=== PATIENT | female | born 1940 | race Caucasian/White ===

== ENCOUNTER 2019-07-07 20:08 | Inpatient (IN) | payer MEDICARE, MEDICAID ==
[2019-07-07] MEDS ORDERED: Maalox 30 mL Cup PO PRN (21:19)
[2019-07-07] MEDS ORDERED: Magnesium Hydroxide (MOM) 30 mL UDC PO PRN (21:19)
[2019-07-07 21:43] VITALS: BP 189/85
--- NOTE | 2019-07-08 08:17 | History and Physical ---
History of Present Illness - HPI Chief Complaint: Psychosis HPI: 78 y/o female who presents to [facility] for psychsois. Patient was evaluated by a PET team and was placed on a 5150. Patient has no past medical history. While in the ER patient had initial labwork done WBC 8.3 H/H 13/39.6 plat 217 Na 139 K 3.8 Bun/Cr 13/0.53 glu 93 cholesterol 218 LDL 119 HDL 67 Patient was subsequently admitted for further evaluation and treatment. Vital Signs: Last Vital Signs Temp 97.5 F 07/08/19 06:06 Pulse 85 07/08/19 06:06 Resp 18 07/08/19 06:06 BP 124/66 07/08/19 06:06 Pulse Ox 98 07/08/19 06:06 Past Medical History Cardiovascular: Report: No Pertinent Hx Pulmonary: Report: No Pertinent Hx [employer]: Report: No Pertinent Hx GI: Report: No Pertinent Hx Psych: Report: Psychosis Musculoskeletal: Report: No Pertinent Hx Rheumatologic: Report: No pertinent Hx Infectious Disease: Report: No Pertinent Hx Renal/: Report: No Pertinent Hx Endocrine: Report: No Pertinent Hx Dermatology: Report: No Pertinent Hx - Past Surgical History Past Surgical History: No pertinent Hx Family Medical History - Family Member Daughter History Unknown: Yes Ethnicity: Unknown Living Status: Unknown Social History Smoke: No Alcohol: None Drugs: None Lives: Other ([facility]) - Allergies Allergies/Adverse Reactions: Allergies Allergy/AdvReac Type Severity Reaction Status Date / Time No Known Allergies Allergy Verified 07/07/19 21:15 Review of Systems - Review of Systems Constitutional: Report: No Significant Eyes: Report: No Significant ENT: Report: No Significant Respiratory: Report: No Significant Cardiovascular: Report: No Significant Gastrointestinal: Report: No Significant Genitourinary: Report: No Significant Musculoskeletal: Report: No Significant Skin: Report: No Significant Neurological: Report: No Significant Physical Exam - Physical Exam HEENT: Report: Ears Nose Throat within normal limits, Pharnyx within normal limits Neck: Report: Within normal limits Cardiovascular Systems: Report: +s1/s2 noted, Regular, Rate and Rhythm Respiratory: Report: Breath Sounds are within normal limits Abdomen: Report: Non-tender to palpation Back: Report: Inspection of back is within normal limits. Extremities: Report: Non-tender to palpation. Skin: Report: Color of skin is within normal limits Neuro/Psych: Report: Mood affect is within normal limits, A+Ox3 - Assessment Assessment: Psychosis - Plan Plan: admit to geropsyche continue current orders
--- NOTE | 2019-07-08 13:03 | Psychiatric Evaluation ---
DATE OF SERVICE: 07/07/2019 IDENTIFYING DATA: The patient is a 78-year-old woman, currently homeless. Information obtained by directly interviewing the patient as well as reviewing the admission papers. JUSTIFICATION FOR HOSPITALIZATION: The patient is admitted on a 5150 as a danger to self and being gravely disabled. CHIEF COMPLAINT: "You do not know what is going on. I am scared." HISTORY OF PRESENT ILLNESS: This is the first psychiatric hospitalization to [facility] for this patient who is reported to have a longstanding history of psychiatric problems as per the [facility] workers and the patient is reported to have been refusing to have even the physical as well as psychiatric care for a long time. The patient used to be homeless with great difficulty, they were able to secure a place for her to stay, but the patient is reported to have been very anxious and irritable and has been stating that her ex- is trying to kill her and the patient is trying to run out of the apartment and the patient could not be contained and hence the patient has been brought over here. As per the information obtained, the patient is reported to have been deteriorating at least for the past 2-1/2 years. The patient during the interview is stating there is nothing wrong with her and her ex- is still bothering her. PAST PSYCHIATRIC HISTORY: Please refer to the above. MEDICAL HISTORY: Physical examination is requested by Dr. Wood. SUBSTANCE ABUSE HISTORY: None. PHYSICAL OR SEXUAL ABUSE HISTORY: None. LEGAL PROBLEMS: None at this time. SOCIAL HISTORY: The patient is currently homeless. MENTAL STATUS EXAMINATION: The patient is a 78-year-old woman looking her stated age, superficially cooperative. Eye contact is fair. Mood is noted to be irritable. Affect is constricted. The patient is getting easily anxious and irritable. The patient has paranoid delusions and is fearful that her ex- is trying to kill her. The patient is stating that she needs to be in a safe and secured place. The patient is alert and aware that she is in the hospital. Short term memory is noted to be poor. Long-term memory seems to be fair at this time. Attention span and concentration are noted to be fair. The patient is not presenting with any threats to harm self or others, but the patient is extremely anxious and is worrying about her personal safety. The patient is not able to recall the three objects that are told to her after 5 minutes and the patient has been getting easily upset when I am asking the questions and then stating that she said enough and wants to walk away. DIAGNOSES: AXIS I: Dementia and behavioral changes, secondary trait. 1B: Psychotic disorder, not otherwise specified. AXIS II: None. AXIS III: As per Dr. Wood. IMMEDIATE TREATMENT PLAN: The patient is going to be observed on inpatient unit, provided with supportive psychotherapy. The patient is going to be closely monitored. Encouraged to verbalize the concerns rather than to act out. Once stabilized, the patient is going [facility] up on an outpatient basis. In view of the psychosis, the patient is going to be started with 12.5 mg of the Seroquel at bedtime and is going to be gradually increased. ESTIMATED LENGTH OF STAY: 5-7 days. DISCHARGE CRITERIA: When the patient no longer is threat to self or others and be able to cope up with the stress. [facility]# [id number]
--- NOTE | 2019-07-09 08:10 | General Progress Note ---
Subjective - Review of Systems Service Date: 07/09/19 Subjective: Awake, Alert, no acute distress VS T 96.9 P 80 EDILIA 158/83 R 20 Objective - Physical Exam Vitals and I&O: Vital Signs Temp 96.9 F 07/09/19 06:34 Pulse 80 07/09/19 06:34 Resp 20 07/09/19 06:34 BP 158/83 07/09/19 06:34 Pulse Ox 95 07/09/19 06:34 Intake & Output 07/08/19 07/09/19 07/09/19 18:59 06:59 18:59 Intake Total 360 Balance 360 Intake: Oral 360 Other: # Voids 1 # Bowel Movements 0 Active Medications: Current Medications Acetaminophen (Tylenol) 650 mg PO Q6H PRN PRN Reason: Mild Pain/Headache/T above 101 Stop: 09/05/19 21:18 Al Hydrox/Mg Hydrox/Simethicone (Maalox) 30 ml PO Q6H PRN PRN Reason: Dyspepsia Stop: 09/05/19 21:18 Lorazepam (Ativan) 0.5 mg PO Q6H PRN; Protocol PRN Reason: Anxiety/Agitation Stop: 09/05/19 21:18 Last Admin: 07/08/19 14:21 Dose: 0.5 mg Magnesium Hydroxide (Milk Of Magnesia) 30 ml PO HS PRN PRN Reason: Constipation Stop: 09/05/19 21:18 Ondansetron HCl (Zofran Odt) 4 mg PO Q6H PRN PRN Reason: Nausea / Vomiting Stop: 09/05/19 21:18 Quetiapine Fumarate (Seroquel) 12.5 mg PO HS FRANK; Protocol Stop: 09/06/19 20:59 Zolpidem Tartrate (Ambien) 5 mg PO HS PRN PRN Reason: Insomnia Stop: 09/05/19 21:18 Last Admin: 07/08/19 22:28 Dose: 5 mg General: Alert, No acute distress HEENT: Atraumatic, EOMI Neck: Supple Cardiovascular: Regular rate, Normal S1, Normal S2 Lungs: Clear to auscultation Abdomen: Bowel sounds Extremities: no Clubbing, no Cyanosis, no Edema Assessment/Plan - Assessment Assessment: Psychosis elevated BP - Plan Plan: admit to geropsyche continue current orders will add clonidine 0.1mg PO
--- NOTE | 2019-07-09 12:38 | Progress Notes ---
DATE: 07/09/2019 PSYCHIATRIC PROGRESS NOTE SUBJECTIVE: Staff was spoken to. The patient is interviewed. Mood is noted to be irritable. Affect is constricted. The patient is stating that she should not be taking any medications. The patient's blood pressure has been coming high. Insight and judgment at this time are noted to be still impaired. Impulse control is noted to be limited. The patient is still reporting to endorsing to auditory hallucinations. The patient is stating that she has her own space. She needs to be back at home. ASSESSMENT: The patient is still psychotic and is not making much sense. PLAN: To continue the patient with the current medications and follow. JOB# [id number]
--- NOTE | 2019-07-10 08:24 | General Progress Note ---
Subjective - Review of Systems Service Date: 07/10/19 Subjective: Awake, Alert, no acute distress VS T 97.5 P 57 EDILIA 142/73 R 18 Objective - Physical Exam Vitals and I&O: Vital Signs Temp 97.5 F 07/10/19 06:27 Pulse 57 07/10/19 06:27 Resp 18 07/10/19 06:27 BP 142/73 07/10/19 06:27 Pulse Ox 100 07/10/19 06:27 Intake & Output 07/09/19 07/10/19 07/10/19 18:59 06:59 18:59 Intake Total 1200 240 Balance 1200 240 Intake: Oral 1200 240 Other: # Voids 1 # Bowel Movements 1 0 Active Medications: Current Medications Acetaminophen (Tylenol) 650 mg PO Q6H PRN PRN Reason: Mild Pain/Headache/T above 101 Stop: 09/05/19 21:18 Al Hydrox/Mg Hydrox/Simethicone (Maalox) 30 ml PO Q6H PRN PRN Reason: Dyspepsia Stop: 09/05/19 21:18 Lorazepam (Ativan) 0.5 mg PO Q6H PRN; Protocol PRN Reason: Anxiety/Agitation Stop: 09/05/19 21:18 Last Admin: 07/09/19 15:04 Dose: 0.5 mg Magnesium Hydroxide (Milk Of Magnesia) 30 ml PO HS PRN PRN Reason: Constipation Stop: 09/05/19 21:18 Ondansetron HCl (Zofran Odt) 4 mg PO Q6H PRN PRN Reason: Nausea / Vomiting Stop: 09/05/19 21:18 Quetiapine Fumarate (Seroquel) 12.5 mg PO HS FRANK; Protocol Stop: 09/06/19 20:59 Last Admin: 07/09/19 21:07 Dose: 12.5 mg Zolpidem Tartrate (Ambien) 5 mg PO HS PRN PRN Reason: Insomnia Stop: 09/05/19 21:18 Last Admin: 07/09/19 21:08 Dose: 5 mg General: Alert, No acute distress HEENT: Atraumatic, EOMI Neck: Supple Cardiovascular: Regular rate, Normal S1, Normal S2 Lungs: Clear to auscultation Abdomen: Bowel sounds Extremities: no Clubbing, no Cyanosis, no Edema Assessment/Plan - Assessment Assessment: Psychosis elevated BP - Plan Plan: admit to geropsyche continue current orders will add clonidine 0.1mg PO will add Norvasc 5mg PO daily Nutritional Asmnt/Malnutr-PDOC - Dietary Evaluation Malnutrition Findings (Please click <Entered> for more info): Nutritional Asmnt/Malnutrition Start: 07/09/19 12: 45 Text: Status: Complete Freq: Protocol: Document 07/09/19 12:45 LOYDA (Rec: 07/09/19 13:04 [email or web address] [email or web address] [id number]) Nutritional Asmnt/Malnutrition Patient General Information Nutritional Screening Moderate Risk Diagnosis Psychosis Pertinent Medical Hx/Surgical Hx none noted Subjective Information Per nursing notes, patient was admitted from [facility] on 5150 with increased delusions and paranoia preventing her from staying in her apartment. Nursing notes also states she does nto eat or drink becasue she believes people are trying to poison her and has been noted to eat from trash at times. Noted that she has a flat affect and isirritable towards staff and other patients. Oral intake ~85% of meals; With current diet order , she is receiving 2230 kcal, 107gm protein per day. With patients oral intake, she is eating ~1900kcal, 90gm protein , meeting 100% of needs. Current Diet Order/ Nutrition Support Cardiac (no added sodium) Patient / S.O Not Indicated Pertinent Medications maalox, MOM, zofran Pertinent Labs (07/06) Cholesterol 218, LDL 119, HDL 67 Nutritional Hx/Data Height 1.45 m Height (Calculated Centimeters) 144.8 Current Weight (lbs) 67.132 kg Weight (Calculated Kilograms) 67.1 Weight (Calculated Grams) 91463.7 [place] Body Weight 92.5 % [place] Body Weight 160 Body Mass Index (BMI) 32.0 Recent Weight Change No Weight Status Obese GI Symptoms GI Symptoms None Last BM none noted Difficult in: None Food Allergies No Cultural/Ethnic/Bahai Belief none indicated Usual diet at home unknown Skin Integrity/Comment: Peter 19, intact Current %PO Good (75-100%) Estimated Nutritional Goals BEE in Kcals: Adj wt of IBW Calories/Kcals/Kg Adj BW 48.3kg 25-30kcal/kg Kcals Calculated ~0013-5265 kcal/day Protein: Adj wt of IBW Protein g/k-1.2gm/kg Protein Calculated ~50-55gm/day Fluid: ml ~9556-9870 ml/day (1 ml/kcal) Nutritional Problem 1. Problem Problem Altered nutrition related lab values related to Etiology possible excessive fat intake aeb Signs/Symptoms: (07/06) Cholesterol 218, LDL 119, HDL 67 Intervention/Recommendation Comments 1. Continue Cardiac diet as tolerated by patient. Expected Outcomes/Goals Expected Outcomes/Goals Adequate nutrition to meet >75 % estimated needs, improved labs, skin remains intact, weight maintenance or trend toward ideal body weight. F/U LR 07/15-
--- NOTE | 2019-07-10 14:01 | Consultation ---
DATE OF CONSULTATION: 07/09/2019 REQUESTING PHYSICIAN: Emiliana Ram M.D. TYPE OF CONSULTATION: Psychology. HISTORY OF PRESENT ILLNESS: The patient is a 78-year-old female. The following is by review of the medical record and by the patient's self- report. According to record review, the patient is currently homeless and is being admitted on a 5150 as a danger to self as well as being gravely disabled. According to review of the medical record, the patient has a history of psychiatric disorder as noted by the [facility]. The notes also indicate the patient had been homeless for some time and that the patient has had no psychiatric care or physical care for an indeterminate amount of time. The patient states that she believes her ex- is trying to kill her. She also endorsed auditory hallucinations, i.e., hearing voices which are the persecutory type, but not command type. The patient is not making much sense and is easily irritated. The patient states that she does not need to be in the hospital and that nothing is wrong with her. The patient did not verbally contract for safety. PAST MEDICAL HISTORY: Please see history and physical by Dr. Wood. PAST PSYCHIATRIC HISTORY: As mentioned above, full Details and records are unavailable. SUBSTANCE ABUSE HISTORY: The patient denied any history of alcohol, tobacco, illicit or recreational drug use. BRIEF PSYCHOSOCIAL HISTORY: The patient is currently homeless as indicated by the medical record. The patient did not answer questions about occupational or educational history. The patient stated no specific buddhism affiliation. The patient is not and has no children. Case management has been informed regarding the patient's placement. MENTAL STATUS EXAMINATION: The patient appears to be her stated age. Attitude is guarded and suspicious. Eye contact is poor. Speech is loud. Mood is irritable and anxious. Affect is animated. The patient is endorsing the experience of auditory hallucinations, i.e., persecutory type, but no command type. The patient reports she believes her ex- is trying to kill her. There is evidence of paranoid ideation. The patient denied any visual hallucinations. She denied any suicidal ideation, plan or intention. The patient's behavior has been impulsive and difficult to deescalate and redirect. Staff reported that she is refusing care. Impulse control is inadequate. Concentration is fair to poor. Sensorium is alert and oriented to self only. The patient does not understand that she is in the hospital. The patient's memory seems to be impaired for short term and alf dimensions. This needs further evaluation. The patient is stating at the time of this clinical interview that she is worried about her personal safety, i.e., her ex-. The patient is easily agitated during this clinical interview. The patient did not participate in the interpretation of proverbs. Insight is impaired. Judgment is impaired. DIAGNOSTIC IMPRESSION AXIS I: 1. Provisional diagnosis of dementia with behavioral disturbance. 2. Psychotic disorder, not otherwise specified. AXIS II: Deferred. AXIS III: Per Dr. Wood. TREATMENT PLAN: The patient has been seen by Dr. Ram for psychiatric evaluation and for the management of the patient's psychotropic medications. We will provide supportive psychotherapy to include reality orientation, differentiation and integration. We will provide de-escalation and limit setting. We will provide motivational enhancement for the patient to become compliant and stay compliant with all aspects of her care and treatment. We will encourage the patient to verbalize her concerns versus acting out. We will provide daily opportunities for the patient to verbally contract for safety and provide suicide prevention skills and intervention. We will also provide coping strategies for phase of life issues as well as for chronic severe mental illness. We will encourage the patient to discuss and accept placement with case management and the attending psychiatrist. We will evaluate the patient for safety, i.e., no self-harm or harm to others as the primary discharge criteria. We will follow up in 2-3 days to continue the present treatment as discussed above. Thank you, Dr. Ram for this consult and the opportunity to participate with you in this patient's care. JOB# [id number] JOHNNA
--- NOTE | 2019-07-10 14:43 | Progress Notes ---
DATE: 07/10/2019 PSYCHIATRIC PROGRESS NOTE SUBJECTIVE: Staff was spoken to. The patient is interviewed. Mood is noted to be irritable. Affect is constricted. Insight and judgment at this time are noted to be still impaired. Impulse control is noted to be limited. The patient has been reluctant to comply with the medications. The patient has to be closely monitored. The patient even refusing to take her blood pressure medications. Blood pressure is still running very high. The patient has no insight into her illness. ASSESSMENT: The patient is still grossly psychotic and impulsive. PLAN: To continue the patient with the supportive therapy. I encouraged the patient to verbalize the concerns and the patient is going to be given the dose of the haloperidol every 6 hours in view of the psychosis and the patient is going to be closely monitored. The patient is going to be encouraged to verbalize the concerns rather than to act out at this time. The patient is not ready to be discharged to a lower level of care in view of her psychosis and being gravely disabled. [facility]# [id number]
[2019-07-10] MEDS ORDERED: Haloperidol Lactate 5 mg/mL 1mL Vial ONE (15:02)
--- NOTE | 2019-07-11 08:05 | General Progress Note ---
Subjective - Review of Systems Service Date: 07/11/19 Subjective: Awake, Alert, no acute distress VS T 98.1 P 65 EDILIA 146/58 R 20 Objective - Physical Exam Vitals and I&O: Vital Signs Temp 98.1 F 07/11/19 06:38 Pulse 65 07/11/19 06:38 Resp 20 07/11/19 06:38 BP 146/58 07/11/19 06:38 Pulse Ox 98 07/11/19 06:38 Intake & Output 07/10/19 07/11/19 07/11/19 18:59 06:59 18:59 Intake Total 500 420 Balance 500 420 Intake: Oral 500 420 Other: # Voids 1 Active Medications: Current Medications Acetaminophen (Tylenol) 650 mg PO Q6H PRN PRN Reason: Mild Pain/Headache/T above 101 Stop: 09/05/19 21:18 Al Hydrox/Mg Hydrox/Simethicone (Maalox) 30 ml PO Q6H PRN PRN Reason: Dyspepsia Stop: 09/05/19 21:18 Amlodipine Besylate (Norvasc) 10 mg PO DAILY FRANK Stop: 09/09/19 08:59 Haloperidol (Haldol) 1 mg PO Q6HR PRN; Protocol PRN Reason: Agitation Stop: 09/08/19 11:59 Last Admin: 07/10/19 15:19 Dose: 1 mg Lorazepam (Ativan) 0.5 mg PO Q6H PRN; Protocol PRN Reason: Anxiety/Agitation Stop: 09/05/19 21:18 Last Admin: 07/10/19 14:53 Dose: 0.5 mg Magnesium Hydroxide (Milk Of Magnesia) 30 ml PO HS PRN PRN Reason: Constipation Stop: 09/05/19 21:18 Ondansetron HCl (Zofran Odt) 4 mg PO Q6H PRN PRN Reason: Nausea / Vomiting Stop: 09/05/19 21:18 Quetiapine Fumarate (Seroquel) 25 mg PO HS FRANK; Protocol Stop: 09/08/19 20:59 Zolpidem Tartrate (Ambien) 5 mg PO HS PRN PRN Reason: Insomnia Stop: 09/05/19 21:18 Last Admin: 07/09/19 21:08 Dose: 5 mg General: Alert, No acute distress HEENT: Atraumatic, EOMI Neck: Supple Cardiovascular: Regular rate, Normal S1, Normal S2 Lungs: Clear to auscultation Abdomen: Bowel sounds Extremities: no Clubbing, no Cyanosis, no Edema Assessment/Plan - Assessment Assessment: Psychosis HTN - Plan Plan: admit to geropsyche continue current orders will add clonidine 0.1mg PO will increase Norvasc 10mg PO daily add metoprolol 12.5mg PO BID Nutritional Asmnt/Malnutr-PDOC - Dietary Evaluation Malnutrition Findings (Please click <Entered> for more info): Nutritional Asmnt/Malnutrition Start: 07/09/19 12: 45 Text: Status: Complete Freq: Protocol: Document 07/09/19 12:45 LOYDA (Rec: 07/09/19 13:04 LOYDA [email or web address]- [id number]) Nutritional Asmnt/Malnutrition Patient General Information Nutritional Screening Moderate Risk Diagnosis Psychosis Pertinent Medical Hx/Surgical Hx none noted Subjective Information Per nursing notes, patient was admitted from [facility] on 5150 with increased delusions and paranoia preventing her from staying in her apartment. Nursing notes also states she does nto eat or drink becasue she believes people are trying to poison her and has been noted to eat from trash at times. Noted that she has a flat affect and isirritable towards staff and other patients. Oral intake ~85% of meals; With current diet order , she is receiving 2230 kcal, 107gm protein per day. With patients oral intake, she is eating ~1900kcal, 90gm protein , meeting 100% of needs. Current Diet Order/ Nutrition Support Cardiac (no added sodium) Patient / S.O Not Indicated Pertinent Medications maalox, MOM, zofran Pertinent Labs (07/06) Cholesterol 218, LDL 119, HDL 67 Nutritional Hx/Data Height 1.45 m Height (Calculated Centimeters) 144.8 Current Weight (lbs) 67.132 kg Weight (Calculated Kilograms) 67.1 Weight (Calculated Grams) 78285.7 [place] Body Weight 92.5 % [place] Body Weight 160 Body Mass Index (BMI) 32.0 Recent Weight Change No Weight Status Obese GI Symptoms GI Symptoms None Last BM none noted Difficult in: None Food Allergies No Cultural/Ethnic/Rastafarian Belief none indicated Usual diet at home unknown Skin Integrity/Comment: Peter 19, intact Current %PO Good (75-100%) Estimated Nutritional Goals BEE in Kcals: Adj wt of IBW Calories/Kcals/Kg Adj BW 48.3kg 25-30kcal/kg Kcals Calculated ~8402-8631 kcal/day Protein: Adj wt of IBW Protein g/k-1.2gm/kg Protein Calculated ~50-55gm/day Fluid: ml ~6480-5368 ml/day (1 ml/kcal) Nutritional Problem 1. Problem Problem Altered nutrition related lab values related to Etiology possible excessive fat intake aeb Signs/Symptoms: (07/06) Cholesterol 218, LDL 119, HDL 67 Intervention/Recommendation Comments 1. Continue Cardiac diet as tolerated by patient. Expected Outcomes/Goals Expected Outcomes/Goals Adequate nutrition to meet >75 % estimated needs, improved labs, skin remains intact, weight maintenance or trend toward ideal body weight. F/U LR 07/15-
--- NOTE | 2019-07-12 00:19 | Progress Notes ---
DATE: 07/11/2019 PSYCHIATRIC PROGRESS NOTE SUBJECTIVE: Staff was spoken to. The patient is interviewed. Mood is noted to be irritable. Affect is constricted. Insight and judgment are noted to be very much impaired. The patient has been having blood pressure problems too. The patient is reluctant to take any medication stating that there is nothing wrong with her. The patient has been still responding to internal stimuli. Continues to be paranoid. No side effects to the medications are noted. The patient is currently on 25 mg of the Seroquel and has been able to tolerate the medication. ASSESSMENT: The patient is still psychotic and demented. PLAN: To continue the patient with the supportive therapy and followup. JOB# [id number]
--- NOTE | 2019-07-12 07:52 | General Progress Note ---
Subjective - Review of Systems Service Date: 07/12/19 Subjective: Awake, Alert, no acute distress VS T 98.3 P 67 EDILIA 141/71 R 19 Objective - Physical Exam Vitals and I&O: Vital Signs Temp 98.3 F 07/12/19 06:41 Pulse 67 07/12/19 06:41 Resp 19 07/12/19 06:41 BP 141/71 07/12/19 06:41 Pulse Ox 96 07/12/19 06:41 Intake & Output 07/11/19 07/12/19 07/12/19 18:59 06:59 18:59 Intake Total 120 Balance 120 Intake: Oral 120 Other: # Voids 2 3 # Bowel Movements 1 0 Active Medications: Current Medications Acetaminophen (Tylenol) 650 mg PO Q6H PRN PRN Reason: Mild Pain/Headache/T above 101 Stop: 09/05/19 21:18 Al Hydrox/Mg Hydrox/Simethicone (Maalox) 30 ml PO Q6H PRN PRN Reason: Dyspepsia Stop: 09/05/19 21:18 Amlodipine Besylate (Norvasc) 10 mg PO DAILY [facility] Stop: 09/09/19 08:59 Last Admin: 07/11/19 08:57 Dose: 10 mg Haloperidol (Haldol) 1 mg PO Q6HR PRN; Protocol PRN Reason: Agitation Stop: 09/08/19 11:59 Last Admin: 07/10/19 15:19 Dose: 1 mg Lorazepam (Ativan) 0.5 mg PO Q6H PRN; Protocol PRN Reason: Anxiety/Agitation Stop: 09/05/19 21:18 Last Admin: 07/11/19 21:02 Dose: 0.5 mg Magnesium Hydroxide (Milk Of Magnesia) 30 ml PO HS PRN PRN Reason: Constipation Stop: 09/05/19 21:18 Metoprolol Tartrate (Lopressor) 12.5 mg PO BID FRANK Stop: 09/09/19 08:59 Last Admin: 07/11/19 16:36 Dose: 12.5 mg Ondansetron HCl (Zofran Odt) 4 mg PO Q6H PRN PRN Reason: Nausea / Vomiting Stop: 09/05/19 21:18 Quetiapine Fumarate (Seroquel) 25 mg PO HS FRANK; Protocol Stop: 09/08/19 20:59 Last Admin: 03/16/20 21:02 Dose: 25 mg Zolpidem Tartrate (Ambien) 5 mg PO HS PRN PRN Reason: Insomnia Stop: 09/05/19 21:18 Last Admin: 07/09/19 21:08 Dose: 5 mg General: Alert, No acute distress HEENT: Atraumatic, EOMI Neck: Supple Cardiovascular: Regular rate, Normal S1, Normal S2 Lungs: Clear to auscultation Abdomen: Bowel sounds Extremities: no Clubbing, no Cyanosis, no Edema Assessment/Plan - Assessment Assessment: Psychosis HTN improved - Plan Plan: admit to [facility] continue current orders will add clonidine 0.1mg PO will increase Norvasc 10mg PO daily add metoprolol 12.5mg PO BID Nutritional Asmnt/Malnutr-PDOC - Dietary Evaluation Malnutrition Findings (Please click <Entered> for more info): Nutritional Asmnt/Malnutrition Start: 07/09/19 12: 45 Text: Status: Complete Freq: Protocol: Document 07/09/19 12:45 LOYDA (Rec: 07/09/19 13:04 MMTARI LYNN- [email or web address]) Nutritional Asmnt/Malnutrition Patient General Information Nutritional Screening Moderate Risk Diagnosis Psychosis Pertinent Medical Hx/Surgical Hx none noted Subjective Information Per nursing notes, patient was admitted from [facility] on 0 with increased delusions and paranoia preventing her from staying in her apartment. Nursing notes also states she does nto eat or drink becasue she believes people are trying to poison her and has been noted to eat from trash at times. Noted that she has a flat affect and isirritable towards staff and other patients. Oral intake ~85% of meals; With current diet order , she is receiving 2230 kcal, 107gm protein per day. With patients oral intake, she is eating ~1900kcal, 90gm protein , meeting 100% of needs. Current Diet Order/ Nutrition Support Cardiac (no added sodium) Patient / S.O Not Indicated Pertinent Medications maalox, MOM, zofran Pertinent Labs (07/06) Cholesterol 218, LDL 119, HDL 67 Nutritional Hx/Data Height 1.45 m Height (Calculated Centimeters) 144.8 Current Weight (lbs) 67.132 kg Weight (Calculated Kilograms) 67.1 Weight (Calculated Grams) 61864.7 [place] Body Weight 92.5 % [place] Body Weight 160 Body Mass Index (BMI) 32.0 Recent Weight Change No Weight Status Obese GI Symptoms GI Symptoms None Last BM none noted Difficult in: None Food Allergies No Cultural/Ethnic/Sikh Belief none indicated Usual diet at home unknown Skin Integrity/Comment: Peter Adorno, intact Current %PO Good (75-100%) Estimated Nutritional Goals BEE in Kcals: Adj wt of IBW Calories/Kcals/Kg Adj BW 48.3kg 25-30kcal/kg Kcals Calculated ~6865-8176 kcal/day Protein: Adj wt of IBW Protein g/k-1.2gm/kg Protein Calculated ~50-55gm/day Fluid: ml ~9507-7220 ml/day (1 ml/kcal) Nutritional Problem 1. Problem Problem Altered nutrition related lab values related to Etiology possible excessive fat intake aeb Signs/Symptoms: (07/06) Cholesterol 218, LDL 119, HDL 67 Intervention/Recommendation Comments 1. Continue Cardiac diet as tolerated by patient. Expected Outcomes/Goals Expected Outcomes/Goals Adequate nutrition to meet >75 % estimated needs, improved labs, skin remains intact, weight maintenance or trend toward ideal body weight. F/U LR 07/15-
--- NOTE | 2019-07-12 12:29 | Progress Notes ---
DATE: 07/12/2019 PSYCHIATRIC PROGRESS NOTE SUBJECTIVE: Staff was spoken to. The patient is interviewed. Mood is noted to be irritable. Affect is constricted. She continues to be very paranoid and has been mentioning that she has been having difficult time being in here. The patient is stating that talks about her being a homosexual and trying to abuse her and the patient is stating that she can go out and then be there by herself, does not need to be in here. The patient's coping skills at this time are noted to be very poor. The patient has been having difficult time to cope with the stress. She continues to be very paranoid, talks about her lili, her being a Taoism and people are not happy about it. The patient is angry at the long term care social worker for bringing her over here. ASSESSMENT: The patient is still depressed and irritable. PLAN: To continue the patient with the supportive therapy and I encouraged the patient to verbalize the concerns rather than to act out. [facility]# [id number]
--- NOTE | 2019-07-13 08:24 | General Progress Note ---
Subjective - Review of Systems Service Date: 07/13/19 Subjective: Awake, Alert, no acute distress VS T 97.7 P 78 EDILIA 143/62 R 18 Objective - Physical Exam Vitals and I&O: Vital Signs Temp 97.7 F 07/13/19 05:38 Pulse 78 07/13/19 05:38 Resp 18 07/13/19 05:38 BP 143/62 07/13/19 05:38 Pulse Ox 96 07/13/19 05:38 Intake & Output 07/12/19 07/13/19 07/13/19 18:59 06:59 18:59 Other: # Voids 2 3 # Bowel Movements 1 0 Active Medications: Current Medications Acetaminophen (Tylenol) 650 mg PO Q6H PRN PRN Reason: Mild Pain/Headache/T above 101 Stop: 09/05/19 21:18 Al Hydrox/Mg Hydrox/Simethicone (Maalox) 30 ml PO Q6H PRN PRN Reason: Dyspepsia Stop: 09/05/19 21:18 Amlodipine Besylate (Norvasc) 10 mg PO DAILY [facility] Stop: 09/09/19 08:59 Last Admin: 07/12/19 08:45 Dose: 10 mg Haloperidol (Haldol) 1 mg PO Q6HR PRN; Protocol PRN Reason: Agitation Stop: 09/08/19 11:59 Last Admin: 07/10/19 15:19 Dose: 1 mg Lorazepam (Ativan) 0.5 mg PO Q6H PRN; Protocol PRN Reason: Anxiety/Agitation Stop: 09/05/19 21:18 Last Admin: 07/11/19 21:02 Dose: 0.5 mg Magnesium Hydroxide (Milk Of Magnesia) 30 ml PO HS PRN PRN Reason: Constipation Stop: 09/05/19 21:18 Metoprolol Tartrate (Lopressor) 12.5 mg PO BID FRANK Stop: 09/09/19 08:59 Last Admin: 07/12/19 17:29 Dose: 12.5 mg Ondansetron HCl (Zofran Odt) 4 mg PO Q6H PRN PRN Reason: Nausea / Vomiting Stop: 09/05/19 21:18 Quetiapine Fumarate (Seroquel) 25 mg PO HS FRANK; Protocol Stop: 09/08/19 20:59 Last Admin: 07/12/19 20:22 Dose: 25 mg Zolpidem Tartrate (Ambien) 5 mg PO HS PRN PRN Reason: Insomnia Stop: 09/05/19 21:18 Last Admin: 07/09/19 21:08 Dose: 5 mg General: Alert, No acute distress HEENT: Atraumatic, EOMI Neck: Supple Cardiovascular: Regular rate, Normal S1, Normal S2 Lungs: Clear to auscultation Abdomen: Bowel sounds Extremities: no Clubbing, no Cyanosis, no Edema Assessment/Plan - Assessment Assessment: Psychosis HTN improved - Plan Plan: admit to [facility] continue current orders will add clonidine 0.1mg PO will increase Norvasc 10mg PO daily add metoprolol 12.5mg PO BID Nutritional Asmnt/Malnutr-PDOC - Dietary Evaluation Malnutrition Findings (Please click <Entered> for more info): Nutritional Asmnt/Malnutrition Start: 07/09/19 12: 45 Text: Status: Complete Freq: Protocol: Document 07/09/19 12:45 LOYDA (Rec: 07/09/19 13:04 MMTARI LYNN- [email or web address]) Nutritional Asmnt/Malnutrition Patient General Information Nutritional Screening Moderate Risk Diagnosis Psychosis Pertinent Medical Hx/Surgical Hx none noted Subjective Information Per nursing notes, patient was admitted from [facility] on 5150 with increased delusions and paranoia preventing her from staying in her apartment. Nursing notes also states she does nto eat or drink becasue she believes people are trying to poison her and has been noted to eat from trash at times. Noted that she has a flat affect and isirritable towards staff and other patients. Oral intake ~85% of meals; With current diet order , she is receiving 2230 kcal, 107gm protein per day. With patients oral intake, she is eating ~1900kcal, 90gm protein , meeting 100% of needs. Current Diet Order/ Nutrition Support Cardiac (no added sodium) Patient / S.O Not Indicated Pertinent Medications maalox, MOM, zofran Pertinent Labs (07/06) Cholesterol 218, LDL 119, HDL 67 Nutritional Hx/Data Height 1.45 m Height (Calculated Centimeters) 144.8 Current Weight (lbs) 67.132 kg Weight (Calculated Kilograms) 67.1 Weight (Calculated Grams) 58571.7 [place] Body Weight 92.5 % [place] Body Weight 160 Body Mass Index (BMI) 32.0 Recent Weight Change No Weight Status Obese GI Symptoms GI Symptoms None Last BM none noted Difficult in: None Food Allergies No Cultural/Ethnic/Hoahaoism Belief none indicated Usual diet at home unknown Skin Integrity/Comment: Peter 19, intact Current %PO Good (75-100%) Estimated Nutritional Goals BEE in Kcals: Adj wt of IBW Calories/Kcals/Kg Adj BW 48.3kg 25-30kcal/kg Kcals Calculated ~6119-9191 kcal/day Protein: Adj wt of IBW Protein g/k-1.2gm/kg Protein Calculated ~50-55gm/day Fluid: ml ~1831-0646 ml/day (1 ml/kcal) Nutritional Problem 1. Problem Problem Altered nutrition related lab values related to Etiology possible excessive fat intake aeb Signs/Symptoms: (07/06) Cholesterol 218, LDL 119, HDL 67 Intervention/Recommendation Comments 1. Continue Cardiac diet as tolerated by patient. Expected Outcomes/Goals Expected Outcomes/Goals Adequate nutrition to meet >75 % estimated needs, improved labs, skin remains intact, weight maintenance or trend toward ideal body weight. F/U LR 07/15-
--- NOTE | 2019-07-13 18:30 | Progress Notes ---
DATE: 07/13/2019 PSYCHOLOGY PROGRESS NOTE SUBJECTIVE: The patient is seen and is interviewed. Case is discussed with staff. The patient is seen up in a chair watching television in the group room, i.e., activity and dining area. The patient states that she needs the psychiatrist and this magazine writer to help keep her 5 children safe because her has been threatening to kill them all for 8 or 9 years now. The patient was unable to be cognitively redirected. Reality testing is poor. The patient perseverated on the need for law enforcement to fix her situation. The patient stated, "the social work faculty member is the one who got me hospitalized." The patient's paranoia persists. OBJECTIVE: Mood is mildly irritable and fluctuating. Affect is constricted. Thought process indicates paranoid ideation, severe and perseveration. The patient denied any auditory or visual hallucinations. The patient continued to report that she believes her is homosexual and a pedophile and abused her children and abused her and was going to kill them all. Staff reports she is easily agitated and frustrated. ASSESSMENT: The patient's depression persists. The patient has been compliant with her medication. PLAN: The patient mentioned that she is a Congregational and that she believes that will help her. She also stated that she believes she is discriminated against because of her lili. The patient states that she does not want to return to her facility because the social work faculty member was the one "who got me hospitalized." We provided reality testing, orientation, differentiation and integration. The patient responded poorly. We provided de-escalation as well as stress management to increase the patient's frustration tolerance. We provided remotivation for the patient to become compliant and stay compliant with all aspects of her care and treatment. We provided coping strategies for phase of life issues as well as for chronic severe mental illness. The patient seems to respond at times to the interventions; however, the patient lapses into the delusional content rather rapidly. The patient appears to be cycling. We will follow up in 2-3 days if the patient remains on the unit and is able to demonstrate that she will benefit from psychology services. JOB# [id number] JOHNNA
--- NOTE | 2019-07-13 20:17 | Progress Notes ---
DATE: 07/13/2019 PSYCHIATRIC PROGRESS NOTE SUBJECTIVE: Staff was spoken to. The patient is interviewed. Mood is noted to be irritable. Affect is constricted. The patient's insight and judgment are noted to be still impaired. Impulse control is noted to be poor. The patient has been going on a tangent talks about her who had been cheating on her and has been homosexual. Coping skills at this time are noted to be very poor. The patient has been having difficult time to cope with the stress. The patient is currently on a low dose of Seroquel and has been able to tolerate the medication. The patient has been angry at the professor of social work from the [facility], stating that they are not helping her and she needs to go back to her own place. The patient has no insight into her illness. 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 PLAN: To continue the patient with the supportive therapy, encouraged the patient to verbalize the concerns rather than to act out. [facility]# [id number]
--- NOTE | 2019-07-14 07:59 | General Progress Note ---
Subjective - Review of Systems Service Date: 07/14/19 Subjective: Awake, Alert, no acute distress VS T 97.7 P 78 EDILIA 143/62 R 18 Objective - Physical Exam Vitals and I&O: Vital Signs Temp 97.4 F 07/14/19 06:58 Pulse 67 07/14/19 06:58 Resp 20 07/14/19 06:58 BP 145/72 07/14/19 06:58 Pulse Ox 94 07/14/19 06:58 Intake & Output 07/13/19 07/14/19 07/14/19 18:59 06:59 18:59 Intake Total 900 240 Balance 900 240 Intake: Oral 900 240 Other: # Voids 3 2 # Bowel Movements 1 0 Active Medications: Current Medications Acetaminophen (Tylenol) 650 mg PO Q6H PRN PRN Reason: Mild Pain/Headache/T above 101 Stop: 09/05/19 21:18 Al Hydrox/Mg Hydrox/Simethicone (Maalox) 30 ml PO Q6H PRN PRN Reason: Dyspepsia Stop: 09/05/19 21:18 Amlodipine Besylate (Norvasc) 10 mg PO DAILY [facility] Stop: 09/09/19 08:59 Last Admin: 07/13/19 08:54 Dose: 10 mg Haloperidol (Haldol) 1 mg PO Q6HR PRN; Protocol PRN Reason: Agitation Stop: 09/08/19 11:59 Last Admin: 07/10/19 15:19 Dose: 1 mg Lorazepam (Ativan) 0.5 mg PO Q6H PRN; Protocol PRN Reason: Anxiety/Agitation Stop: 09/05/19 21:18 Last Admin: 07/11/19 21:02 Dose: 0.5 mg Magnesium Hydroxide (Milk Of Magnesia) 30 ml PO HS PRN PRN Reason: Constipation Stop: 09/05/19 21:18 Metoprolol Tartrate (Lopressor) 12.5 mg PO BID FRANK Stop: 09/09/19 08:59 Last Admin: 07/13/19 16:25 Dose: 12.5 mg Ondansetron HCl (Zofran Odt) 4 mg PO Q6H PRN PRN Reason: Nausea / Vomiting Stop: 09/05/19 21:18 Quetiapine Fumarate (Seroquel) 25 mg PO HS FRANK; Protocol Stop: 09/08/19 20:59 Last Admin: 07/13/19 20:42 Dose: 25 mg Zolpidem Tartrate (Ambien) 5 mg PO HS PRN PRN Reason: Insomnia Stop: 09/05/19 21:18 Last Admin: 07/09/19 21:08 Dose: 5 mg General: Alert, No acute distress HEENT: Atraumatic, EOMI Neck: Supple Cardiovascular: Regular rate, Normal S1, Normal S2 Lungs: Clear to auscultation Abdomen: Bowel sounds Extremities: no Clubbing, no Cyanosis, no Edema Assessment/Plan - Assessment Assessment: Psychosis HTN better control - Plan Plan: admit to [facility] continue current orders will add clonidine 0.1mg PO will increase Norvasc 10mg PO daily add metoprolol 12.5mg PO BID Nutritional Asmnt/Malnutr-PDOC - Dietary Evaluation Malnutrition Findings (Please click <Entered> for more info): Nutritional Asmnt/Malnutrition Start: 07/09/19 12: 45 Text: Status: Complete Freq: Protocol: Document 07/09/19 12:45 LOYDA (Rec: 07/09/19 13:04 [email or web address] LYNN- [email or web address]) Nutritional Asmnt/Malnutrition Patient General Information Nutritional Screening Moderate Risk Diagnosis Psychosis Pertinent Medical Hx/Surgical Hx none noted Subjective Information Per nursing notes, patient was admitted from [facility] on 5150 with increased delusions and paranoia preventing her from staying in her apartment. Nursing notes also states she does nto eat or drink becasue she believes people are trying to poison her and has been noted to eat from trash at times. Noted that she has a flat affect and isirritable towards staff and other patients. Oral intake ~85% of meals; With current diet order , she is receiving 2230 kcal, 107gm protein per day. With patients oral intake, she is eating ~1900kcal, 90gm protein , meeting 100% of needs. Current Diet Order/ Nutrition Support Cardiac (no added sodium) Patient / S.O Not Indicated Pertinent Medications maalox, MOM, zofran Pertinent Labs (07/06) Cholesterol 218, LDL 119, HDL 67 Nutritional Hx/Data Height 1.45 m Height (Calculated Centimeters) 144.8 Current Weight (lbs) 67.132 kg Weight (Calculated Kilograms) 67.1 Weight (Calculated Grams) 80694.7 [place] Body Weight 92.5 % [place] Body Weight 160 Body Mass Index (BMI) 32.0 Recent Weight Change No Weight Status Obese GI Symptoms GI Symptoms None Last BM none noted Difficult in: None Food Allergies No Cultural/Ethnic/Lutheran Belief none indicated Usual diet at home unknown Skin Integrity/Comment: Peter Adorno, intact Current %PO Good (75-100%) Estimated Nutritional Goals BEE in Kcals: Adj wt of IBW Calories/Kcals/Kg Adj BW 48.3kg 25-30kcal/kg Kcals Calculated ~8316-3848 kcal/day Protein: Adj wt of IBW Protein g/k-1.2gm/kg Protein Calculated ~50-55gm/day Fluid: ml ~7696-5306 ml/day (1 ml/kcal) Nutritional Problem 1. Problem Problem Altered nutrition related lab values related to Etiology possible excessive fat intake aeb Signs/Symptoms: (07/06) Cholesterol 218, LDL 119, HDL 67 Intervention/Recommendation Comments 1. Continue Cardiac diet as tolerated by patient. Expected Outcomes/Goals Expected Outcomes/Goals Adequate nutrition to meet >75 % estimated needs, improved labs, skin remains intact, weight maintenance or trend toward ideal body weight. F/U LR 07/15-
--- NOTE | 2019-07-14 12:32 | Progress Notes ---
DATE: 07/14/2019 PSYCHIATRIC PROGRESS NOTE SUBJECTIVE: Staff was spoken to. The patient is interviewed. Mood is noted to be irritable. Affect is constricted. Insight and judgment are noted to be still impaired. Impulse control is noted to be limited. The patient continues to be paranoid. The patient has been testing the limits at this time stating that she is here for no reason. She needs to be there with her family. ASSESSMENT: The patient is still paranoid and demented. PLAN: To continue the patient with the supportive therapy, encouraged the patient to verbalize the concerns rather than to act out. JOB# [id number]
--- NOTE | 2019-07-15 07:57 | General Progress Note ---
Subjective - Review of Systems Service Date: 07/15/19 Subjective: Awake, Alert, no acute distress. Patient to be discharged to SNF. Patient is currently medically stable for discharged VS T 97.5 P 83 EDILIA 130/79 R 20 Objective - Physical Exam Vitals and I&O: Vital Signs Temp 97.5 F 07/15/19 05:40 Pulse 83 07/15/19 05:40 Resp 20 07/15/19 05:40 BP 130/79 07/15/19 05:40 Pulse Ox 95 07/15/19 05:40 Intake & Output 07/14/19 07/15/19 07/15/19 18:59 06:59 18:59 Intake Total 1200 360 Balance 1200 360 Intake: Oral 1080 360 Other 120 Other: # Voids 3 1 # Bowel Movements 0 0 Active Medications: Current Medications Acetaminophen (Tylenol) 650 mg PO Q6H PRN PRN Reason: Mild Pain/Headache/T above 101 Stop: 09/05/19 21:18 Al Hydrox/Mg Hydrox/Simethicone (Maalox) 30 ml PO Q6H PRN PRN Reason: Dyspepsia Stop: 09/05/19 21:18 Amlodipine Besylate (Norvasc) 10 mg PO DAILY [facility] Stop: 09/09/19 08:59 Last Admin: 07/14/19 08:19 Dose: 10 mg Haloperidol (Haldol) 1 mg PO Q6HR PRN; Protocol PRN Reason: Agitation Stop: 09/08/19 11:59 Last Admin: 07/10/19 15:19 Dose: 1 mg Lorazepam (Ativan) 0.5 mg PO Q6H PRN; Protocol PRN Reason: Anxiety/Agitation Stop: 09/05/19 21:18 Last Admin: 07/11/19 21:02 Dose: 0.5 mg Magnesium Hydroxide (Milk Of Magnesia) 30 ml PO HS PRN PRN Reason: Constipation Stop: 09/05/19 21:18 Metoprolol Tartrate (Lopressor) 12.5 mg PO BID FRANK Stop: 09/09/19 08:59 Last Admin: 07/14/19 16:37 Dose: 12.5 mg Ondansetron HCl (Zofran Odt) 4 mg PO Q6H PRN PRN Reason: Nausea / Vomiting Stop: 09/05/19 21:18 Quetiapine Fumarate (Seroquel) 25 mg PO HS FRANK; Protocol Stop: 09/08/19 20:59 Last Admin: 07/14/19 20:55 Dose: 25 mg Zolpidem Tartrate (Ambien) 5 mg PO HS PRN PRN Reason: Insomnia Stop: 09/05/19 21:18 Last Admin: 07/09/19 21:08 Dose: 5 mg General: Alert, No acute distress HEENT: Atraumatic, EOMI Neck: Supple Cardiovascular: Regular rate, Normal S1, Normal S2 Lungs: Clear to auscultation Abdomen: Bowel sounds Extremities: no Clubbing, no Cyanosis, no Edema Assessment/Plan - Assessment Assessment: Psychosis HTN Generalized weakness - Plan Plan: Patient medically stable for discharge to SNF continue current orders will add clonidine 0.1mg PO will increase Norvasc 10mg PO daily add metoprolol 12.5mg PO BID Nutritional Asmnt/Malnutr-PDOC - Dietary Evaluation Malnutrition Findings (Please click <Entered> for more info): Nutritional Asmnt/Malnutrition Start: 07/09/19 12: 45 Text: Status: Complete Freq: Protocol: Document 07/09/19 12:45 LOYDA (Rec: 07/09/19 13:04 MMTARI LYNN- [email or web address]) Nutritional Asmnt/Malnutrition Patient General Information Nutritional Screening Moderate Risk Diagnosis Psychosis Pertinent Medical Hx/Surgical Hx none noted Subjective Information Per nursing notes, patient was admitted from [facility] on 5149 with increased delusions and paranoia preventing her from staying in her apartment. Nursing notes also states she does nto eat or drink becasue she believes people are trying to poison her and has been noted to eat from trash at times. Noted that she has a flat affect and isirritable towards staff and other patients. Oral intake ~85% of meals; With current diet order , she is receiving 2230 kcal, 107gm protein per day. With patients oral intake, she is eating ~1900kcal, 90gm protein , meeting 100% of needs. Current Diet Order/ Nutrition Support Cardiac (no added sodium) Patient / S.O Not Indicated Pertinent Medications maalox, MOM, zofran Pertinent Labs (07/06) Cholesterol 218, LDL 119, HDL 67 Nutritional Hx/Data Height 1.45 m Height (Calculated Centimeters) 144.8 Current Weight (lbs) 67.132 kg Weight (Calculated Kilograms) 67.1 Weight (Calculated Grams) 79277.7 [place] Body Weight 92.5 % [place] Body Weight 160 Body Mass Index (BMI) 32.0 Recent Weight Change No Weight Status Obese GI Symptoms GI Symptoms None Last BM none noted Difficult in: None Food Allergies No Cultural/Ethnic/Samaritan Belief none indicated Usual diet at home unknown Skin Integrity/Comment: Peter 19, intact Current %PO Good (75-100%) Estimated Nutritional Goals BEE in Kcals: Adj wt of IBW Calories/Kcals/Kg Adj BW 48.3kg 25-30kcal/kg Kcals Calculated ~8138-9366 kcal/day Protein: Adj wt of IBW Protein g/k-1.2gm/kg Protein Calculated ~50-55gm/day Fluid: ml ~9839-0997 ml/day (1 ml/kcal) Nutritional Problem 1. Problem Problem Altered nutrition related lab values related to Etiology possible excessive fat intake aeb Signs/Symptoms: (07/06) Cholesterol 218, LDL 119, HDL 67 Intervention/Recommendation Comments 1. Continue Cardiac diet as tolerated by patient. Expected Outcomes/Goals Expected Outcomes/Goals Adequate nutrition to meet >75 % estimated needs, improved labs, skin remains intact, weight maintenance or trend toward ideal body weight. F/U LR 07/15-
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
== END 2019-07-15 19:05 | DRG 885 ==
LOC: GERO 20:36
PROVIDERS: ADMIT Psychiatry & Neurology Psychiatry; ATTEND Psychiatry & Neurology Psychiatry
DX: F29 Unspecified psychosis not due to a substance or known physiological condition (principal); F03.91 Unspecified dementia, unspecified severity, with behavioral disturbance; I10 Essential (primary) hypertension; R53.1 Weakness; Z59.0 Homelessness
CPT/HCPCS: G0410; J1630; J2060; Z7610